=== PATIENT | female | born 1975 | race Caucasian/White ===

== ENCOUNTER 2024-09-08 17:36 | Emergency (ER) | payer OTHER ==
[~2024-09-08] VITALS: Ht 170.2 cm; Wt 75.8 kg
[2024-09-08] MEDS ORDERED: FentaNYL Citrate 50 MCG/ML 2 ML Injection IV ONE (19:00)
[2024-09-08 19:57] LABS: Source, Urine Clean Catch
[2024-09-08 20:02] LABS: Appearance, Urine Clear (Clear); Blood, Urine 3+ (Neg); Color, Urine Amber (P-Yellow); Glucose Qualitative, Urine Neg (Neg); Ketones, Urine 1+ (Neg); Leukocyte Esterase, Urine 1+ (Neg); Nitrite, Urine Pos (Neg); Protein, Urine 2+ (Neg); Urobilinogen, Urine 3+ (Normal)
[2024-09-08] MEDS ORDERED: OxyCODONE 5 mg/Acetamin 325 mg TABLET PO ONE (20:05)
[2024-09-08 20:13] LABS: Bilirubin, Urine 3+ (Neg)
[2024-09-08 20:14] LABS: Red Blood Cells, Urine 25-50 /hpf (0-2)
[2024-09-08 20:15] LABS: Bacteria Few /hpf; Squamous Epithelial Cells Rare /hpf (Few)
[2024-09-08] MEDS ORDERED: Cephalexin Monohydrate 500 MG Cap PO ONE (20:30)
[2024-09-08] MEDS ORDERED: CEPH500 PO (20:32)
== END 2024-09-08 20:40 | disposition home or self-care (01) ==
LOC: ER 17:36
PROVIDERS: Student in an Organized Health Care Education/Training Program
DX: G89.18 Other acute postprocedural pain (principal); V48.6XXA Car passenger injured in noncollision transport accident in traffic accident, initial encounter; N39.0 Urinary tract infection, site not specified; Z88.5 Allergy status to narcotic agent; Z88.8 Allergy status to other drugs, medicaments and biological substances
CPT/HCPCS: 74177; 81001; 87086; 96374-59; 99285-25; A9270; J3010; Q9967